=== PATIENT | female | born 1975 | race Caucasian/White ===

== ENCOUNTER 2016-08-18 19:15 | Emergency (ER) | payer OTHER ==
--- NOTE | 2016-08-18 19:18 | PDOC ---
History of Present Illness - General History Source: Patient Exam Limitations: No Limitations - History of Present Illness Initial Comments: 08/18/16 20:02 The patient is a 41 year old female, with no significant past medical history, who presents today complaining of 3 days of LLQ pain and frequent urination. She describes the pain as being sharp and intermittent. She reports a loss of appetite. She notes that the last bowel movement was yesterday. Denies fever, chills, nausea, vomiting. Denies dysuria, hematuria. Denies vaginal discharge. Allergies: none reported ROS General: No fevers or chills, no weakness, no weight loss HEENT: No change in vision. No sore throat,. No ear pain CardioVascular: No chest pain or shortness of breath Respiratory:No cough, or wheezing. Gastrointestinal: +LLQ pain. no nausea, vomiting, diarrhea or constipation, No rectal bleeding Genitourinary: +urinary frequency. No dysuria, hematuria Musculoskeletal: No joint or muscle pain or swelling Neurologic: No headache, vertigo, dizziness or loss of consciousness Psychiatric: nor depression Skin: No rashes or easy bruising Endocrine: no increased thirst or abnormal weight change Allergic: no skin or latex allergy All other systems reviewed and normal Physical Exam General: Well-nourished well-developed individual, no acute distress HEENT: Throat: Normal, tonsils normal, no erythema or exudate Neck: Supple, no meningeal signs, no lymphadenopathy Eyes:Pupils equal reactive and round, extraocular motion intact Chest: Nontender to palpation Cardiac: S1-S2 normal, regular rate and rhythm, no murmurs rubs or gallops Respiratory: Lungs clear to auscultation bilateral Abdomen: Tenderness to palpation LLQ. No guarding no rebound of the Soft, nondistended, normal bowel sounds Pelvic:No vaginal discharge. No cervical tenderness. No adnexal masses palpated. Extremities: Warm, dry, no cyanosis, clubbing, or edema Skin: No rashes Neuro: Alert and oriented x3, nonfocal exam, grossly intact, normal gait Psych: Normal mood and affect <Kerry Simms - Last Filed: 08/18/16 20:01> - General History Source: Patient Exam Limitations: No Limitations - History of Present Illness Initial Comments: 08/18/16 22:39 A portion of this note was documented by scribe services under my direction. I have reviewed the details of the note, within reason, and agree with the documentation. The case summary and management plan written by me. CT scan shows left small corpus luteum cyst, a 7.2 cm fibroid in the uterus that is cystic/necrotic, and a small amount of fluid in the cul-de-sac. Otherwise there is no evidence of diverticulosis or diverticulitis. Assessment and plan: This is a 41-year-old female who comes in complaining of one day of left lower quadrant abdominal pain associated with some anorexia and nausea. Patient's CAT scan as discussed above Patient's workup was otherwise unremarkable with the exception of an 11.1 white count but no left shift. Discussed with patient her CAT scan results and her workup. I recommended that patient follow up with her OB tomorrow. Results of her CAT scan and blood work were given to her at discharge. 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 <Melody Araujo I - Last Filed: 08/18/16 22:43> - General Chief Complaint: Pain, Acute Stated Complaint: LLQ PAIN Time Seen by Provider: 08/18/16 19:16 Past History <Kerry Simms - Last Filed: 08/18/16 20:01> <Melody Araujo I - Last Filed: 08/18/16 22:43> - Past Medical History Allergies/Adverse Reactions: Allergies Allergy/AdvReac Type Severity Reaction Status Date / Time No Known Allergies Allergy Verified 08/18/16 19:16 Home Medications: Ambulatory Orders Levothyroxine [Synthroid -] 125 mcg PO DAILY 08/18/16 *Physical Exam - Vital Signs Last Vital Signs Temp Pulse Resp BP Pulse Ox 98.3 F 115 H 16 127/89 96 08/18/16 19:18 08/18/16 19:18 08/18/16 19:18 08/18/16 19:18 08/18/16 19:18 <Kerry Simms - Last Filed: 08/18/16 20:01> ED Treatment Course - ADDITIONAL ORDERS Additional order review: Laboratory Results 08/18/16 19:15 Urine Color Yellow Urine Appearance Clear Urine pH 7.5 Ur Specific [place] 1.020 Urine Protein Negative Urine Glucose (UA) Negative Urine Ketones Negative Urine Blood Trace-intact Urine Nitrite Negative Urine Bilirubin Negative Urine Urobilinogen 0.2 e.u/dl Ur Leukocyte Esterase Trace H Urine HCG, Qual Negative <Kerry Simms - Last Filed: 08/18/16 20:01> - LABORATORY CBC & Chemistry Diagram: 08/18/16 20:10 08/18/16 20:10 <Melody Araujo I - Last Filed: 08/18/16 22:43> *DC/Admit/Observation/Transfer - Attestations Scribe Attestion: 08/18/16 20:02 Documentation prepared by ARABELLA Quick, acting as medical liaison for Melody Araujo MD. <Kerry Simms - Last Filed: 08/18/16 20:01> - Discharge Dispostion Admit: No <Melody Araujo I - Last Filed: 08/18/16 22:43> Diagnosis at time of Disposition: Left lower quadrant pain - Discharge Dispostion Disposition: HOME Condition at time of disposition: Stable - Patient Instructions Printed Discharge Instructions: DI for Abdominal Pain-Adult Additional Instructions: You can take Tylenol or ibuprofen as needed for the pain. It is important that you follow-up with your OB doctor in the morning take a copy of your blood work and CAT scan with you to your OB. Return to the emergency department immediately with ANY new, persistent or worsening symptoms. Continue any medications as previously prescribed by your physician. You should follow up with your primary doctor as soon as possible regarding today's emergency department visit. . Please make sure your doctor reviews the results of your emergency evaluation. Thank you for coming to the Emergency Department today for your care. It was a pleasure to see you today. Please note that your evaluation is INCOMPLETE until you follow-up with your doctor.
[2016-08-18 19:28] LABS: PH,URINE 7.5 (4.5-8); URINE APPEARANCE Clear; URINE BILIRUBIN Negative (NEGATIVE); URINE BLOOD Trace-intact (NEGATIVE); URINE GLUCOSE (UA) Negative (NEGATIVE); URINE KETONE Negative (NEGATIVE); URINE NITRITE Negative (NEGATIVE); URINE PROTEIN Negative (NEGATIVE); URINE UROBILINOGEN 0.2 E.U/dl (0.2-1.0)
[2016-08-18 19:29] LABS: URINE COLOR YELLOW; URINE LEUK ESTERASE TRACE (NEGATIVE)
[2016-08-18 19:46] VITALS: BP 127/89; TEMP 98.3; BMI 29.2
[2016-08-18] MEDS ORDERED: SODIUM CHLORIDE 1,000 ML IV ONE (19:59)
[2016-08-18 20:37] LABS: BASOPHIL 0.4 % (0-2.0); EOSINOPHIL 0.8 % (0-4.5); MCH 31.2 pg (25.7-33.7); MEAN CELL VOLUME 89.1 fl (80-96); MEAN PLT VOLUME 9.7 fl (7.5-11.1); NEUTROPHILS 75.7 % (42.8-82.8); PLATELET COUNT 196 K/MM3 (134-434); RDW 11.5 % (11.6-15.6); WHITE BLOOD COUNT 11.1 K/mm3 (4.0-10.0)
[2016-08-18 20:46] LABS: ALBUMIN 4.1 g/dl (3.5-5.0); ALK PHOS 43 U/L (32-92); ANION GAP 5 (8-16); BILIRUBIN,TOTAL 0.9 mg/dl (0.2-1.0); CALCIUM 8.7 mg/dl (8.4-10.2); CO2 25 mmol/L (22-28); CREATININE 0.6 mg/dl (0.6-1.3); GLUCOSE,RANDOM 103 mg/dl (74-106); SGOT/AST 22 U/L (10-42); SGPT/ALT 13 U/L (10-40); TOT PROT 6.9 g/dl (6.4-8.3)
[2016-08-18 22:29] LABS: URINE AMORPHOUS SEDIMENT 1+
[2016-08-18 22:43] VITALS: PULSE 104
== END 2016-08-18 22:45 | disposition home or self-care (01) ==
LOC: FER 19:15
PROC: 3E0337Z Introduction of Electrolytic and Water Balance Substance into Peripheral Vein, Percutaneous Approach (ICD-10-PCS; principal; 2016-08-18)
DX: R10.32 Left lower quadrant pain (principal)
CPT/HCPCS: 36415; 74177-TC; 80053; 81003; 81015; 83690; 84703; 85025; 87086; 99281-25

== ENCOUNTER 2020-01-02 17:49 | Emergency (ER) | payer OTHER ==
[2020-01-02 17:54] VITALS: BP 126/83; PULSE 76; TEMP 98.1; BMI 29.0
[2020-01-02] MEDS ORDERED: DIPHTH,PERTUSS(ACELL),TET 0.5 ML DISP.SYRIN IM ONE ×2 (19:08→19:18)
--- NOTE | 2020-01-02 19:12 | PDOC ---
Documentation entered by Edward Garrett SCRIBE, acting as scribe for Alirio Ray MD. Alirio Ray MD: This documentation has been prepared by the Tami lester Angel, SCRIBE, under my direction and personally reviewed by me in its entirety. I confirm that the documentation accurately reflects all work, treatment, procedures, and medical decision making performed by me. History of Present Illness - General Chief Complaint: Foreign Body (FB) Stated Complaint: WOOD IN FOOT History Source: Patient Exam Limitations: No Limitations - History of Present Illness Initial Comments: 01/02/20 18:15 The patient is a 44 year old female who presents to the ED with a foreign body in her left foot. The patient states she kicked the wood railing surrounding her fireplace and a piece of wood got stuck in her left foot. The patient states she tried taking the piece of wood out herself with tweezers but ended up pushing it in further. The patient endorses left foot pain and is unable to bear weight on it. The patient has no further complaints here in the ED. Past medical history: Hypothyroidism Medications: Synthroid 125mcg daily and Cytomel Allergies: NKDA Past History - Medical History Allergies/Adverse Reactions: Allergies Allergy/AdvReac Type Severity Reaction Status Date / Time No Known Allergies Allergy Verified 01/02/20 18:10 Home Medications: Ambulatory Orders Levothyroxine [Synthroid -] 125 mcg PO DAILY 08/18/16 Thyroid Disease: Yes - Psycho-Social/Smoking History Smoking History: Never smoked Have you smoked in the past 12 months: No Review of Systems - Review of Systems Able to Perform ROS?: Yes Comments:: 01/02/20 18:15 GENERAL/CONSTITUTIONAL: No fever or chills. No weakness. HEAD, EYES, EARS, NOSE AND THROAT: No change in vision. No ear pain or discharge. No sore throat. CARDIOVASCULAR: No chest pain or shortness of breath. RESPIRATORY: No cough, wheezing, or hemoptysis. GASTROINTESTINAL: No nausea, vomiting, diarrhea or constipation. GENITOURINARY: No dysuria, frequency, or change in urination. MUSCULOSKELETAL: +Foreign body in left foot, Left foot pain. No neck or back pain. SKIN: No rash NEUROLOGIC: No headache, vertigo, loss of consciousness, or change in strength/sensation. ENDOCRINE: No increased thirst. No abnormal weight change. HEMATOLOGIC/LYMPHATIC: No anemia, easy bleeding, or history of blood clots. ALLERGIC/IMMUNOLOGIC: No hives or skin allergy. *Physical Exam - Physical Exam 01/02/20 18:24 GENERAL: The patient is awake, alert, and fully oriented, in no acute distress. HEAD: Normal with no signs of trauma. EYES: Pupils equal, round and reactive to light, extraocular movements intact, sclera anicteric, conjunctiva clear. EXTREMITIES: +Foreign body palpable, sole of the left foot, in the area of the head of the 5th metatarsal. It is palpable approximately 5 millimeters beneath the top layer of epidermis, with the end slightly recessed. Mild tenderness around foreign body but no erythema, bleeding, or purulent discharge. NEUROLOGICAL: Normal speech, normal gait. PSYCH: Normal mood, normal affect. SKIN: Warm, Dry, normal turgor, no rashes or lesions noted. Medical Decision Making - Medical Decision Making 01/02/20 18:21 Splinter from earlier today visible and palpable in the sole of the left foot, over the head of the fifth metatarsal. X-ray reveals the foreign body is intact. Procedure note: Local anesthesia and splinter removal Skin was prepped with Betadine. Local anesthesia 1% lidocaine plain with good result Splinter was removed intact with forceps. Wound was irrigated with saline, dressed with bacitracin. Rest and elevation for 24 to 48 hours. Recheck if persistent pain or sign of infection primary physician. Adequately ambulatory at discharge in no significa nt pain Discharge - Discharge Information Problems reviewed: Yes Clinical Impression/Diagnosis: Foreign body in foot Qualifiers: Encounter type: initial encounter Laterality: left Qualified Code(s): S90.852A - Superficial foreign body, left foot, initial encounter Condition: Improved Disposition: HOME - Admission No - Follow up/Referral Referrals: Esequiel Kendrick MD [Staff Physician] - 1 week - Patient Discharge Instructions Patient Printed Discharge Instructions: DI for Splinter Removal Additional Instructions: Rest and elevate 24 to 48 hours or until pain resolves Warm soaks 20 to 30 minutes 3-4 times daily, either warm water or Epsom salts If swelling pain or drainage ensues, recheck primary physician or return to emergency room. If there are small fragments of splinter remaining, they will work their way to the skin surface on their own. They should not cause any additional pain or risk of infection. - Post Discharge Activity
== END 2020-01-02 19:23 | disposition home or self-care (01) ==
LOC: FER 17:49
PROC: 3E0234Z Introduction of Serum, Toxoid and Vaccine into Muscle, Percutaneous Approach (ICD-10-PCS; principal; 2020-01-02)
DX: S91.342A Puncture wound with foreign body, left foot, initial encounter (principal); W45.8XXA Other foreign body or object entering through skin, initial encounter
CPT/HCPCS: 73630-TC-LT; 90715; 99283-25